=== PATIENT | female | born 2000 | race Caucasian/White ===

== ENCOUNTER 2022-09-24 05:52 | Emergency (ER) | payer BC ==
[~2022-09-24] VITALS: Ht 162.6 cm; Wt 68.0 kg
[2022-09-24] MEDS ORDERED: OXYCODONE HCL/ACETAMINOPHEN 5/325MG TABLET PO ONE (06:15)
[2022-09-24] MEDS ORDERED: TOPUD PO (07:34)
[2022-09-24 07:59] VITALS: BP 110/73
== END 2022-09-24 08:00 | disposition home or self-care (01) ==
LOC: ER 05:56
DX: M25.512 Pain in left shoulder (principal); M79.632 Pain in left forearm; G89.11 Acute pain due to trauma; V49.49XA Driver injured in collision with other motor vehicles in traffic accident, initial encounter; Y93.89 Activity, other specified; Y92.488 Other paved roadways as the place of occurrence of the external cause
CPT/HCPCS: 71045; 73060; 73090; 81025; 99284; A4565